=== PATIENT | female | born 2005 | race Caucasian/White ===

== ENCOUNTER 2025-02-02 09:26 | Outpatient (REF) | payer OTHER, SELFPAY ==
--- NOTE | ~2025-02-02 | US_ITS ---
EXAMINATION: US PELVIS CLINICAL INFORMATION: Heavy bleeding and painful periods. COMPARISON: None available. TECHNIQUE: Ultrasound of the pelvis is performed using both transabdominal and transvaginal transducers along with Doppler. Transvaginal imaging is performed due to inadequate visualization transabdominally. FINDINGS: Uterus: The uterus is in anteversion flexion and measures 7 x 5 x 5 cm. Volume: 83 cc. The double wall endometrial thickness is 4 mm. No gross soft tissue lesion in the myometrium. No gross abnormality in the cervix. Adnexa: The right ovary is not identified.. The left ovary is identified with flow on color Doppler interrogation. There is a 3.3 cm anechoic lesion in the left ovary. Small trace amount of free fluid in the cul-de-sac. Left ovary measures 4 x 4 x 3 cm. Volume: 23 cc. US/US pelvic complete IMPRESSION: 3.3 cm cystic lesion, left adnexa. Right ovary is not identified. Normal uterus. Electronically signed by: Elie Carlisle MD 02/02/2025 02:31 PM EST
--- OUTSIDE RECORDS SUMMARY | 2025-02-02 10:56 | XMS_ITS | Clinical Summary ---
Author Organization [facility] Address [address] [place] [phone] Phone Care Team Providers Care Windows System Admin Name Role Phone Maria De Jesus Frances Primary Care Provider [phone] Allergies No known active allergies Medications etonogestreL (NEXPLANON) 68 mg Impl 07/03/2023 Active hydrOXYzine HCL (ATARAX) 10 MG tablet 07/29/2024 Active lamoTRIgine (LAMICTAL ODT) 50 mg disintegrating tablet 10/29/2024 Active mirtazapine (REMERON) 7.5 MG tablet 07/08/2024 Active sertraline (ZOLOFT) 50 MG tablet 03/03/2024 Active Active Problems No known active problems Encounters Date Type Department Care Team Description 11/12/2024 8:15 AM EDT Office Visit [facility] [address] [place] [address] Enriqueta Moeller MD Closed nondisplaced fracture of head of right radius with routine healing, subsequent encounter (Primary Dx) 11/09/2024 6:03 PM EDT - 11/09/2024 11:59 PM EDT Hospital Encounter [facility], Ct Scan - [address] [address] Vladimir Owens PA-C Discharge Disposition: Home or Self Care 11/05/2024 10:45 AM EDT Office Visit [facility] at [address] [phone] Vladimir Owens PA-C Closed displaced fracture of coronoid process of right ulna, initial encounter (Primary Dx) 11/05/2024 Procedure Pass [facility], Ct Scan - [facility] [address] [place] [address] 11/04/2024 5:13 PM EDT - 11/04/2024 10:09 PM EDT Emergency [facility] [address] [place] [address] Discharge Disposition: Home or Self Care 11/04/2024 Procedure Pass [facility], Ct Scan - [facility] [address] [place] [address] from Last 3 Months Social History Tobacco Use Types Packs/Day Years Used Date Smoking Tobacco: Never Smokeless Tobacco: Never Tobacco Cessation:Counseling Given: Not Answered Alcohol Use Standard Drinks/Week Comments Never 0 (1 standard drink = 0.6 oz pur e alcohol) Education Answer Date Recorded Are you interested in more education? Not on mattie e 09/05/2024 Are you concerned about learning? Not on file 09/05/2024 No 09/05/2024 No 09/05/2024 Food Answer Date Recorded Within the past 6 months we worried whether our food would run out before we got money to buy more. Never True 11/04/2024 Within the past 6 months the food we bought just didn't last and we didn't have enough money to get more. Never True Residential Stability Answer Date Recor ded What is your housing situation today? I have chayito sing 11/04/2024 How many times have you move d in the past 12 months? Zero (I did not move) 11/04/2024 Paying for Meds Answer Date Recorded Do you have trouble paying for medicines? No 11/04/2024 Paying Utility Bills Answer Date Record ed Do you have trouble paying your heating or elect ricity bill? No 11/04/2024 Transportation Answer Date Recorded Has the lack of transportati on kept you from medical appointments or from getting medications? No 11/04/2024 Digital Access Answer Date Recorded No 11/04/2024 Yes 11/04/2024 Do you have reliable internet access at home? Ye s 11/04/2024 Do you have a device (e.g., phone, tablet, computer) with a working camera? Yes 11/04/2024 Intimate Partner Violence Answer Date R ecorded Are you denied basic needs s uch as food, clothing, or medical care? No 11/04/2024 In the past 12 months have y ou been in a relationship with a person who hurts, threatens, or tries to control you? No 11/04/2024 Are you denied basic needs s uch as food, clothing, or medical care? No 11/04/2024 In the past 12 months have y ou been in a relationship with a person who hurts, threatens, or tries to control you? No 11/04/2024 Comments Unknown Sex and Gender Information Value Date Recorded Sex Assigned at Not on file Legal Sex Female 8:30 PM EDT Gender Identity Not on file Sexual Orientation Not on file Last Filed Vital Signs Vital Sign Reading Time Taken Comments Blood Pressure 103/73 11/04/2024 9:41 PM EDT Pulse 77 11/04/2024 9:41 PM EDT Temperature 36.3 C (97.4 F) 11/04/2024 9:41 PM EDT Respiratory Rate 16 11/04/2024 9:41 PM EDT Oxygen Saturation 100% 11/04/2024 9:41 PM EDT Inhaled Oxygen Concentration - - Weight 86.2 kg (190 lb 0.6 oz) 11/12/2024 8:08 A M EDT Height 160 cm (5' 3 ) 11/04/2024 5:24 PM EDT Body Mass Index 33.66 11/04/2024 5:24 PM EDT Plan of Treatment Health Maintenance Due Date Last Done Comments MMR VACCINES (1 of 1 - Stand carmel series) 2006 DEVELOPMENTAL/BEHAVIORAL SCR EENING (PHQ, PSC, or SWYC) 2008 COMBINED DTaP,Tdap,Td (1 - Tdap) 2012 DEPRESSION SCREENING 2017 SMOKING Hx and SMOKELESS TOB ACCO SCREENING 2018 VARICELLA VACCINES (1 of 2 - 13+ 2-dose series) 2018 HPV VACCINES (1 - 3-dose series) 2020 CHLAMYDIA SCREENING 2021 MENINGOCOCCAL VACCINES (B) ( 1 of 2 - Standard) 2021 ADOLESCENT UNIVERSAL LIPID SCREENING 2022 HEPATITIS C SCREENING 07/15/2023 HIV ONE-TIME SCREENING (18-6 5 YEARS) 07/15/2023 HEPATITIS B VACCINES (1 of 3 - 19+ 3-dose series) 2024 INFLUENZA VACCINE (#1) 2024 11/08/2023 COVID-19 VACCINE (2 - 2024-2 6 season) 2024 11/08/2023 BMI ASSESSMENT 11/12/2025 11/12/2024 HEPATITIS A VACCINES Aged Out No long er eligible based on patient's age to complete this topic HIB VACCINES Aged Out No longer eligi ble based on patient's age to complete this topic MENINGOCOCCAL VACCINES (ACWY) Aged Out No longer eligible based on patient's age to complete this topic PNEUMOCOCCAL VACCINES (0-49 years) Aged Out No longer eligible based on patient's age to complete this topic Medical Devices Not on file Procedures Procedure Name Priority Date/Time Associated Diagnosis Comments CT ELBOW WITHOUT CONTRAST (RIGHT) Urgent/patient waiting 11/09/2024 6:21 PM EDT Closed displaced fracture of coronoid process of right ulna, initial encounter ORTHOPEDIC INJURY TREATMENT Routine 11/04/2024 9:54 PM EDT LACERATION REPAIR Routine 11/04/2024 8:2 4 PM EDT XR ELBOW 3 OR MORE VIEWS (RIGHT) Routine 11/04/2024 7:58 PM EDT XR WRIST 3 OR MORE VIEWS (RIGHT) Routine 11/04/2024 6:00 PM EDT XR FOREARM 2 VIEWS (RIGHT) Routine 11/04/2024 5:[address] HEAD WITHOUT CONTRAST Routine 11/04/2024 5:18 PM EDT from Last 3 Months Results * CT ELBOW WITHOUT CONTRAST (RIGHT) (11/09/2024 6:21 PM EDT) Anatomical Region Laterality Modality Elbow Right Computed Tomogra phy 11/09/2024 9:21 PM EDT Impressions 11/09/2024 9:45 PM EDT Nondisplaced intra-articular radial head fracture with joint effusion. Narrative 11/09/2024 9:[address] ELBOW WITHOUT CONTRAST (RIGHT) Referring clinician's provided indication for this examination in [facility]: * Fracture, elbow TECHNIQUE: Multidetector-row CT of the elbow, without intravenous contrast using dose-modulation techniques. Images were reconstructed in the axial, coronal, and sagittal planes. COMPARISON: XR ELBOW 3 OR MORE VIEWS (RIGHT) FINDINGS: Nondisplaced intra-articular radial head fracture. No other fracture identified. Specifically, no coronoid process fracture as questioned on the previous radiograph. Joint spaces are maintained. Joint effusion is present. Procedure Note Joseph Martell MD - 11/09/2024 CT ELBOW WITHOUT CONTRAST (RIGHT) Referring clinician's provided indication for this examination in [facility]: *Fracture, elbow TECHNIQUE: Multidetector-row CT of the elbow, without intravenous contrastusing dose-modulation techniques. Images were reconstructed in the axial,coronal, and sagittal planes. COMPARISON: XR ELBOW 3 OR MORE VIEWS (RIGHT) FINDINGS: Nondisplaced intra-articular radial head fracture. No other fractureidentified. Specifically, no coronoid process fracture as questioned onthe previous radiograph. Joint spaces are maintained. Joint effusion ispresent. IMPRESSION: Nondisplaced intra-articular radial head fracture with joint effusion. Vladimir Owens PA-C IMAlisha CT EXTREMITY Final Result * ORTHOPEDIC INJURY TREATMENT (11/04/2024 9:54 PM EDT) Narrative Angel Jo DO - 11/04/2024 9:54 PM EDT Angel Jo DO 11/04/2024 10:04 PM Orthopedic Injury Treatment/Splint/Cast Application Date/Time: 11/04/2024 9:54 PM Performed by: Ana Verdugo PA-C Authorized by: Ana Verdugo PA-C Injury Injury location: Elbow Location details: Right elbow Injury type: Fracture Fracture type: coronoid process Pre-procedure assessment Neurovascular status: Neurovascularly intact Distal perfusion: normal Neurological function: normal Range of motion: reduced Local anesthesia used?: No Procedure details Manipulation performed?: No Immobilization: Splint Splint type: Long arm Supplies used: Cotton padding, elastic bandage and Ortho-Glass Post-procedure assessment Neurovascular status: Neurovascularly intact Distal perfusion: normal Neurological function: normal Range of motion: unchanged Patient tolerance: Patient tolerated the procedure well with no immediate complications Ana Verdugo PA-C PROCEDURE/MINOR SURGI PUSHPA ORDERABLES Final Result * LACERATION REPAIR (11/04/2024 8:24 PM EDT) Narrative West Rehman MD - 11/04/2024 8:24 PM EDT West Rehman MD 11/04/2024 8:33 PM Laceration/Wound Repair Date/Time: 11/04/2024 8:24 PM Performed by: Meliza Ortega PA-C Authorized by: Meliza Ortega PA-C Injury: Body area: Head/neck Location details: Scalp Laceration length (cm): 3 Foreign bodies: No foreign bodies Tendon involvement: None Nerve involvement: None Vascular damage?: No Patient sedated?: No Anesthesia: Local anesthesia used? Yes Local anesthetic: lidocaine 1% without epinephrine Procedure Details: Preparation: Patient was prepped and draped in usual sterile fashion Irrigation solution: Saline Irrigation method: Jet lavage Amount of cleaning: Standard Skin closure: 6-0 Prolene Subcutaneous closure: 4-0 Vicryl Number of sutures: 8 Suture technique: Simple Approximation: Close Dressinx4 sterile gauze Meliza Ortega PA-C PROCEDURE/MINOR SURGICA L ORDERABLES Final Result * XR ELBOW 3 OR MORE VIEWS (RIGHT) (11/04/2024 7:58 PM EDT) Anatomical Region Laterality Modality Elbow Right Computed Radiogr aphy 11/04/2024 9:14 PM EDT Impressions 11/04/2024 9:36 PM EDT Mild cortical irregularity involving the coronoid process of the ulna, suggestive of a fracture with moderate joint effusion. ATTESTATION: Kip Ward as teaching physician, have reviewed the images for this case and if necessary edited the report originally created by Stan Faustin. Narrative 11/04/2024 9:36 PM EDT XR ELBOW 3 OR MORE VIEWS (RIGHT) Referring clinician's provided indication for this examination in Epic: Pain COMPARISON: None. FINDINGS: Mild cortical irregularity involving the coronoid process of the ulna, suggestive of a fracture. The alignment of the elbow joint is maintained. Moderate elbow joint effusion. Unremarkable soft tissues. Procedure Note Kip Valentine MBBS - 11/04/2024 XR ELBOW 3 OR MORE VIEWS (RIGHT) Referring clinician's provided indication for this examination in Epic:Pain COMPARISON: None. FINDINGS: Mild cortical irregularity involving the coronoid process of the ulna,suggestive of a fracture. The alignment of the elbow joint is maintained.Moderate elbow joint effusion. Unremarkable soft tissues. IMPRESSION: Mild cortical irregularity involving the coronoid process of the ulna,suggestive of a fracture with moderate joint effusion. ATTESTATION: Kip Ward as teaching physician, have reviewed theimages for this case and if necessary edited the report originally createdby Stan Faustin. Meliza Ortega PA-C IMG XR UPPER EXTREMITY Final Result * XR WRIST 3 OR MORE VIEWS (RIGHT) (11/04/2024 6:00 PM EDT) MGB IMG WILDLAND FIREFIGHTER COMMENT Small elbow effusion. Subtle cortical irregularity in the radial head seen on the lateral view only concerning for nondisplaced fracture. Dedicated elbow radiographs recommended for better evaluation [facility] Anatomical Region Laterality Modality Wrist Right Computed Radiogr aphy 11/04/2024 6:56 PM EDT Impressions 11/04/2024 7:01 PM EDT 1. Small elbow effusion. Subtle cortical irregularity in the radial head seen on the lateral view only concerning for nondisplaced fracture. Dedicated elbow radiographs recommended for better evaluation and confirm the above findings. 2. Mild to moderate soft tissue swelling along the posterior aspect of the proximal to mid forearm. A clinically significant result was initiated on 11/04/2024 7:00 PM, Message ID [id number]. Narrative 11/04/2024 7:01 PM EDT XR FOREARM 2 VIEWS (RIGHT), XR WRIST 3 OR MORE VIEWS (RIGHT) Referring clinician's provided indication for this examination in Epic: Fracture Follow Up; Pain; Trauma COMPARISON: None. FINDINGS: Small elbow effusion. Subtle cortical irregularity in the radial head seen on the lateral view only. Mild to moderate soft tissue swelling along the posterior aspect of the proximal to mid forearm. Radial and ulnar shafts are intact. No acute fracture in the radius with preserved cartilage spaces and alignment. No significant radiographic soft tissue swelling. Procedure Note Lolly Calix MD - 11/04/2024 XR FOREARM 2 VIEWS (RIGHT), XR WRIST 3 OR MORE VIEWS (RIGHT) Referring clinician's provided indication for this examination in [facility]:Fracture Follow Up; Pain; Trauma COMPARISON: None. FINDINGS: Small elbow effusion. Subtle cortical irregularity in the radial head seenon the lateral view only. Mild to moderate soft tissue swelling along theposterior aspect of the proximal to mid forearm. Radial and ulnar shaftsare intact. No acute fracture in the radius with preserved cartilage spaces andalignment. No significant radiographic soft tissue swelling. IMPRESSION: 1. Small elbow effusion. Subtle cortical irregularity in the radial headseen on the lateral view only concerning for nondisplaced fracture.Dedicated elbow radiographs recommended for better evaluation and confirmthe above findings. 2. Mild to moderate soft tissue swelling along the posterior aspect of theproximal to mid forearm. A clinically significant result was initiated on 11/04/2024 7:00 PM,Message ID [id number]. Meliza Ortega PA-C IMG XR UPPER EXTREMITY Final Result * XR Forearm 2 Views (Right) (11/04/2024 5:59 PM EDT) MGB IMG WILDLAND FIREFIGHTER COMMENT Small elbow effusion. Subtle cortical irregularity in the radial head seen on the lateral view only concerning for nondisplaced fracture. Dedicated elbow radiographs recommended for better evaluation [facility] Anatomical Region Laterality Modality Forearm Right Computed Radiogr aphy 11/04/2024 6:56 PM EDT Impressions 11/04/2024 7:01 PM EDT 1. Small elbow effusion. Subtle cortical irregularity in the radial head seen on the lateral view only concerning for nondisplaced fracture. Dedicated elbow radiographs recommended for better evaluation and confirm the above findings. 2. Mild to moderate soft tissue swelling along the posterior aspect of the proximal to mid forearm. A clinically significant result was initiated on 11/04/2024 7:00 PM, Message ID [id number]. Narrative 11/04/2024 7:01 PM EDT XR FOREARM 2 VIEWS (RIGHT), XR WRIST 3 OR MORE VIEWS (RIGHT) Referring clinician's provided indication for this examination in Epic: Fracture Follow Up; Pain; Trauma COMPARISON: None. FINDINGS: Small elbow effusion. Subtle cortical irregularity in the radial head seen on the lateral view only. Mild to moderate soft tissue swelling along the posterior aspect of the proximal to mid forearm. Radial and ulnar shafts are intact. No acute fracture in the radius with preserved cartilage spaces and alignment. No significant radiographic soft tissue swelling. Procedure Note Lolly Calix MD - 11/04/2024 XR FOREARM 2 VIEWS (RIGHT), XR WRIST 3 OR MORE VIEWS (RIGHT) Referring clinician's provided indication for this examination in [facility]:Fracture Follow Up; Pain; Trauma COMPARISON: None. FINDINGS: Small elbow effusion. Subtle cortical irregularity in the radial head seenon the lateral view only. Mild to moderate soft tissue swelling along theposterior aspect of the proximal to mid forearm. Radial and ulnar shaftsare intact. No acute fracture in the radius with preserved cartilage spaces andalignment. No significant radiographic soft tissue swelling. IMPRESSION: 1. Small elbow effusion. Subtle cortical irregularity in the radial headseen on the lateral view only concerning for nondisplaced fracture.Dedicated elbow radiographs recommended for better evaluation and confirmthe above findings. 2. Mild to moderate soft tissue swelling along the posterior aspect of theproximal to mid forearm. A clinically significant result was initiated on 11/04/2024 7:00 PM,Message ID [id number]. us Meliza Ortega PA-C IMG XR UPPER EXTREMITY Final Result * CT HEAD WITHOUT CONTRAST (11/04/2024 5:18 PM EDT) Anatomical Region Laterality Modality Head Computed Tomogra phy 11/04/2024 6:23 PM EDT Impressions 11/04/2024 7:01 PM EDT No acute intracranial findings. Small scalp soft tissue laceration overlying the right forehead without acute calvarial fracture. ATTESTATION: Kip Ward as teaching physician, have reviewed the images for this case and if necessary edited the report originally created by Stan Faustin. Narrative 11/04/2024 7:[address] HEAD WITHOUT CONTRAST Referring clinician's provided indication for this examination in Epic: * Head trauma, mod-severe TECHNIQUE: CT of the head was performed without intravenous contrast using tailored dose modulation techniques. Images were reconstructed in the axial, coronal, and sagittal planes. COMPARISON: None. FINDINGS: Brain Parenchyma: No midline shift, mass effect, parenchymal hemorrhage, or evidence of acute territorial infarct. Ventricular System and Extra-Axial Spaces: No extra-axial fluid collections. Basal cisterns are patent. No hydrocephalus. Osseous and Extracranial Structures: No calvarial fracture. Small scalp soft tissue laceration overlying the right forehead.No significant paranasal sinus disease. No orbital abnormality. Procedure Note Kip Valentine MBBS - 09/17/2025 CT HEAD WITHOUT CONTRAST Referring clinician's provided indication for this examination in Epic: *Head trauma, mod-severe TECHNIQUE: CT of the head was performed without intravenous contrast usingtailored dose modulation techniques. Images were reconstructed in theaxial, coronal, and sagittal planes. COMPARISON: None. FINDINGS: Brain Parenchyma: No midline shift, mass effect, parenchymal hemorrhage,or evidence of acute territorial infarct. Ventricular System and Extra-Axial Spaces: No extra-axial fluidcollections. Basal cisterns are patent. No hydrocephalus. Osseous and Extracranial Structures: No calvarial fracture. Small scalpsoft tissue laceration overlying the right forehead.No significantparanasal sinus disease. No orbital abnormality. IMPRESSION: No acute intracranial findings. Small scalp soft tissue lacerationoverlying the right forehead without acute calvarial fracture. ATTESTATION: I, Kip Valentine as teaching physician, have reviewed theimages for this case and if necessary edited the report originally createdby Stan Faustin. Meliza LUGO CT HEAD/NECK Final Result from Last 3 Months [facility] H[facility] Care Teams Windows System Admin Relationship Specialty Start Date End Date Maria De Jesus Frances DO [address] [place] [phone] [email or web address] PCP - General Family Medicine 11/12/24 Additional Source Comments The information contained in this document represents components of the legal health record. It is not the complete legal health record.[facility]
--- OUTSIDE RECORDS SUMMARY | 2025-02-02 10:56 | XMS_ITS | Encounter Summary ---
Author Organization [facility] Address [address] [place] [phone] Phone Care Team Providers Care Android Framework Developer Name Role Phone Pcp, Unknown Primary Care Provider Maria De Jesus Mullins DO Primary Care Provider [phone] Encounter Details Date Type Department Care Team (Late st Contact Info) Description 11/05/2024 Procedure Pass [facility], Ct Scan - [address] [address] Social History Tobacco Use Types Packs/Day Years Used Date Smoking Tobacco: Never Smokeless Tobacco: Never Alcohol Use Standard Drinks/Week Comments Never 0 [...] on file Sexual Orientation Not on file documented as of this encounter Plan of Treatment Not on file documented as of this encounter Visit Diagnoses Not on filedocumented in this encounter Care Teams Android Framework Developer Relationship Specialty Start Date End Date Pcp, Unknown PCP - General 09/05/24 11/11/24 Maria De Jesus Frances DO [address] [place] [phone] [email or web address] PCP - General Family Medicine 11/12/24 documented as of this encounter Additional Source Comments The information contained in this document represents components of the legal health record. It is not the complete legal health record.[facility]
--- OUTSIDE RECORDS SUMMARY | 2025-02-02 10:56 | XMS_ITS | Patient Health Record ---
Author Organization Serafin Pearson MD [facility] Address [address], [place] [id number] Care Team Providers Care Director Of Loss Prevention Name Role Phone SERAFIN PEARSON Primary Care Provider Allergies No Known Allergies Reason For Referral No Information Medications Medication SIG (Take, Route, Frequency, Duration) Notes Start Date End Date Status Apri 0.15-30 MG-MCG Tablet TAKE 1 TABLET BY MOUTH EVERY DAY ORALLY ONCE A DAY 28 DAYS; Duration: 84 Active Immunizations Vaccine Route Administration Date Status Comme nts XInfluenza, Flulaval Quadrivalent IM Intramuscular 05/23/2020 Administered BEAR Varicella Unknown 11/20/2006 Administered Varicella Unknown 10/11/2010 Administered Tdap IM Intramuscular 05/23/2020 Administered LALA Pneumococcal conjugate PCV 13 Unknown 01/01/2006 Administered Pneumococcal conjugate PCV 13 Unknown 02/07/2006 Administered Pneumococcal conjugate PCV 13 Unknown 11/20/2006 Administered Pneumococcal conjugate PCV 13 Unknown 10/07/2009 Administered MMR Unknown 11/20/2006 Administered MMR Unknown 10/11/2010 Administered Meningococcal MCV4O (CVX 136) IM Intramuscular 05/23/2020 Administered RLA MenACWY TT IM Intramuscular 06/27/2022 Administered IPV Unknown 2005 Administered IPV Unknown 01/01/2006 Administered IPV Unknown 02/07/2006 Administered IPV Unknown 01/15/2007 Administered IPV Unknown 10/07/2009 Administered Influenza, live, intranasal Unknown 12/03/2008 Administered HPV 9 Unknown 11/12/2017 Administered HPV 9 IM Intramuscular 05/23/2020 Administered LLA Hib 4 dose schedule Unknown 2005 Administered Hib 4 dose schedule Unknown 01/01/2006 Administered Hib 4 dose schedule Unknown 02/07/2006 Administered Hib 4 dose schedule Unknown 11/20/2006 Administered Hep B, adolescent or pediatric (11-19), 3 dose schedule Unknown 2005 Administered Hep B, adolescent or pediatric (11-19), 3 dose schedule Unknown 2005 Administered Hep B, adolescent or pediatric (11-19), 3 dose schedule Unknown 01/01/2006 Administered Hep A, ped/adol, 2 dose Unknown 11/07/2006 Administered Hep A, ped/adol, 2 dose Unknown 08/11/2007 Administered DTaP Unknown 2005 Administered DTaP Unknown 01/01/2006 Administered DTaP Unknown 01/19/2006 Administered DTaP Unknown 01/15/2007 Administered DTaP Unknown 10/11/2010 Administered Social History Tobacco Use: Social History Observation Description Date Details (start date - stop date) Current Smoker NA - NA Social History Sexual History: Social Info Question Answer Notes Sexual History Had sex in the past 12 months (vaginal, oral, or anal)? No Have you ever had a Sexually transmitted disease ? No Drugs/Alcohol: Social Info Question Answer Notes Alcohol Screen (Audit-C) Did you have a drink containing alcohol in the past year? No Points 0 Interpretation Negative Tobacco Use: Social Info Question Answer Notes Tobacco Use/Smoking Are you a current every day smo ker Problems No Known Problems Plan Of Treatment Pending Test Test Name Order Date Urinalysis 05/23/2020 TITMUS 06/16/2021 DEVELOPMENTAL TESTING (NO FINDING) 06/16 PHQ-9 06/16/2021 PHQ-9 05/23/2020 PSC 05/23/2020 Chlamidia/gono/ mycoplasma 06/27/2022 Insurance Providers Payer Name Payer Address Payer Phone Subscriber Number Group Number Insured Name Patient Relationship to Insured Coverage Start Date Coverage End Date [employer] [place] [address] [place] [address] [id number] Yu Ochoa Self - patient is the insured Medical (General) History Surgical History Surgery Date(Month/Year)
--- OUTSIDE RECORDS SUMMARY | 2025-02-02 10:56 | XMS_ITS | Encounter Summary ---
Author Organization [facility] Address [address] [place] [id number] Phone Care Team Providers Care Elevator Technician Name Role Phone Pcp, Unknown Primary Care Provider Maria De Jesus Mullins DO Primary Care Provider [phone] Encounter Details Date Type Department Care Team (Late st Contact Info) Description 11/04/2024 Procedure [facility], Ct Scan - [address] [address] Social History Tobacco Use Types Packs/Day Years [...] on file documented as of this encounter Functional Status * Calculated C-SSRS Risk Score (Lifetime/Recent) Answer Date of Assessment Author No Risk Indicated 11/04/2024 5:19 PM EDT Maria Del Rosario Guajardo RN * Simpson Suicide Severity Rating Scale (Screener/Recent Self-Report) Question Answer Date of Assessment Author 1. Wish to be (Past 1 Month) No 025 5:19 PM EDT Maria Del Rosario Guajardo RN 2. Non-Specific Active Suici karel Thoughts (Past 1 Month) No 11/04/2024 5:19 PM EDT Judie Guajardo RN 6. Suicidal Behavior (Lifetime) No 5:19 PM EDT Maria Del Rosario Guajardo RN documented as of this encounter Plan of Treatment Not on file documented as of this encounter Visit Diagnoses Not on filedocumented in this encounter Care Teams Elevator Technician Relationship Specialty Start Date End Date Pcp, Unknown PCP - General 09/05/24 11/11/24 Maria De Jesus Frances DO [address] [place] [id number] [email or web address] PCP - General Family Medicine 11/12/24 documented as of this encounter Additional Source Comments The information contained in this document represents components of the legal health record. It is not the complete legal health record.[facility]
== END 2025-02-02 09:27 | disposition home or self-care (01) ==
LOC: HO.UMASIMG 09:26
PROVIDERS: Visit Provider Nurse Practitioner Women's Health
DX: N92.0 Excessive and frequent menstruation with regular cycle (principal); N92.6 Irregular menstruation, unspecified
CPT/HCPCS: 76830; 76856